=== PATIENT | female | born 1965 | race Caucasian/White ===

== ENCOUNTER → 2017-02-25 | Outpatient (CLI) | payer BC ==
[~2017-02-25] MED LIST: CRESTOR40 MG; LANTUS 3 M100 UNITS1 SC; NEURONTIN300 MG PO; ONGLYZA5 MG PO
== END | disposition home or self-care (01) ==
LOC: RAD 13:37
PROC: 3E0R3KZ Introduction of Other Diagnostic Substance into Spinal Canal, Percutaneous Approach (ICD-10-PCS; principal; 2017-02-25)
DX: M50.321 Other cervical disc degeneration at C4-C5 level (principal); M48.02 Spinal stenosis, cervical region; M50.10 Cervical disc disorder with radiculopathy, unspecified cervical region; M79.601 Pain in right arm; Z98.1 Arthrodesis status
CPT/HCPCS: 62302; 72040; 72126

== ENCOUNTER 2017-11-27 22:46 | Emergency (ER) | payer BC ==
[~2017-11-27] VITALS: Ht 162.6 cm; Wt 91.4 kg
[2017-11-28 00:52] VITALS: BP 126/91
== END 2017-11-28 01:09 | disposition home or self-care (01) ==
LOC: EME 22:46
DX: S16.1XXA Strain of muscle, fascia and tendon at neck level, initial encounter (principal); S93.401A Sprain of unspecified ligament of right ankle, initial encounter; S63.501A Unspecified sprain of right wrist, initial encounter; W01.0XXA Fall on same level from slipping, tripping and stumbling without subsequent striking against object, initial encounter; E11.9 Type 2 diabetes mellitus without complications; Z79.4 Long term (current) use of insulin; E78.5 Hyperlipidemia, unspecified; Z98.1 Arthrodesis status; Z88.8 Allergy status to other drugs, medicaments and biological substances; Z91.030 Bee allergy status
CPT/HCPCS: 72040; 73110; 73130; 73610; 99281; 99284

== ENCOUNTER 2018-01-21 19:14 | Emergency (ER) | payer BC ==
[~2018-01-21] VITALS: Ht 162.6 cm; Wt 89.0 kg
[2018-01-21 21:41] VITALS: BP 165/103
== END 2018-01-21 21:42 | disposition home or self-care (01) ==
LOC: EME 19:14
DX: F32.9 Major depressive disorder, single episode, unspecified (principal); E78.5 Hyperlipidemia, unspecified; E11.9 Type 2 diabetes mellitus without complications; Z79.4 Long term (current) use of insulin; Z88.8 Allergy status to other drugs, medicaments and biological substances
CPT/HCPCS: 90839; 99281; 99283